=== PATIENT | male | born 1985 | race Caucasian/White ===

== ENCOUNTER 2018-10-29 10:00 | Emergency (ER) | payer MEDICAID ==
[~2018-10-29] VITALS: Ht 184.2 cm; Wt 94.1 kg
[2018-10-29 10:56] LABS: BASOPHILS # (AUTO) 0.03 x10^3/uL (0-0.1); BASOPHILS % (AUTO) 1 % (0-1); EOSINOPHILS # (AUTO) 0.16 x10^3/uL (0-0.4); EOSINOPHILS % (AUTO) 3 % (1-7); LYMPHOCYTES # (AUTO) 1.73 x10^3/uL (1-3.4); LYMPHOCYTES % (AUTO) 28 % (22-44); MD NO; MEAN CORPUSCULAR HEMOGLOBIN 29.4 pg (27.5-34.5); MEAN CORPUSCULAR HGB CONC 34.3 g/dL (33.2-36.2); MEAN CORPUSCULAR VOLUME 85.6 fL (81-97); MEAN PLATELET VOLUME 9.1 fL (7.4-10.4); MONOCYTES % (AUTO) 8 % (2-9); NEUTROPHILS # (AUTO) 3.69 x10^3/uL (1.8-6.8); NEUTROPHILS % (AUTO) 61 % (42-75); PLATELET COUNT 181 x10^3/uL (130-400); RED BLOOD COUNT 4.67 x10^6/uL (4.38-5.82); RED CELL DISTRIBUTION WIDTH 14.2 % (9.4-14.8)
--- NOTE | 2018-10-29 10:58 | NUR ---
CONTACT WITH PT. 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 PT IN HOSPITAL GOWN. BELONGINGS IN BAG.
[2018-10-29 11:07] LABS: ALBUMIN 3.3 g/dL (3.4-5.0); ANION GAP 6 mmol/L (5-15); CALCIUM 8.9 mg/dL (8.5-10.1); CHLORIDE 107 mmol/L (98-107)
[2018-10-29 11:09] LABS: ACETAMINOPHEN < 2 mcg/mL (10-30); CREATININE 0.76 mg/dL (0.7-1.3); SALICYLATE LEVEL < 1.7 mg/dL (2.8-20.0)
--- NOTE | 2018-10-29 11:15 | NUR ---
received report from Bobbi. pt laying on gurney awake, calm & cooperative, responds approp to staff, watching TV, NAD, comfort measures provided, sitter in view.
--- NOTE | 2018-10-29 11:17 | NUR ---
2 BAGS OF BELONGING TO SECURE CABINET. PT UPDATED ON POC. REPORT TO MIR Shelby RN.
--- NOTE | 2018-10-29 11:56 | NUR ---
pt calmly sleeping on hospital bed, NAD with equal chest rise/fall, no needs at this time, sitter in view.
[2018-10-29 12:03] LABS: AMPHETAMINE SCREEN, URINE Positive (Negative); BARBITURATE SCREEN, URINE Negative (Negative); BENZODIAZEPINE SCREEN, URINE Negative (Negative); CANNABINOID SCREEN, URINE Positive (Negative); COCAINE SCREEN, URINE Negative (Negative); METHADONE SCREEN, URINE Negative (Negative); OPIATE SCREEN, URINE Positive (Negative)
--- NOTE | 2018-10-29 12:19 | NUR ---
THROUGHPUT RN: [facility] CALLED FOR MOBILE ASSESSMENT.
--- NOTE | 2018-10-29 12:38 | NUR ---
THROUGHPUT RN: PACKET FAXED TO [facility].
--- NOTE | 2018-10-29 12:55 | NUR ---
pt continues to sleep on hospital bed, NAD with equal chest rise/fall, no needs at this time, sitter in view.
--- NOTE | 2018-10-29 13:16 | NUR ---
pt transferred to 38, pt in safe environment, sitter in full view.
--- NOTE | 2018-10-29 14:12 | NUR ---
pt mostly sleeping on hospital bed, NAD with equal chest rise/fall, no needs at this time, pt remains in safe environment, sitter in view.
--- NOTE | 2018-10-29 14:33 | NUR ---
lunch tray given
--- NOTE | 2018-10-29 14:38 | NUR ---
pt seen by Emily ([facility]).
[2018-10-29 14:42] VITALS: BP 108/57
--- NOTE | 2018-10-29 15:00 | NUR ---
pt ate lunch, back to sleep on hospital bed, responds approp to staff, NAD, comfort measures provided, pt remains in safe environment, sitter in view.
--- NOTE | 2018-10-29 15:31 | NUR ---
Patient given taxi voucher, discharge instructions and Rx, they have confirmed that they understand the instructions. Patient ambulatory with steady gait with all personal belongings with him (2 bags).
== END 2018-10-29 15:40 | disposition home or self-care (01) ==
LOC: ED 11:11
DX: F11.23 Opioid dependence with withdrawal (principal); F15.10 Other stimulant abuse, uncomplicated
CPT/HCPCS: 36415; 80048; 80307; 80329; 82040; 85025; 99283; G0480